=== PATIENT | male | born 1985 | race Caucasian/White ===

== ENCOUNTER 2016-12-10 10:33 | Day surgery (SDC) | payer BC ==
[2016-12-10] VITALS (22 sets, daily range): BP systolic 108–146; BP diastolic 70–97; PULSE 54–78; RESP 11–22; Ht 180.3 cm; Wt 96.2 kg
[~2016-12-10] VITALS: Ht 180.3 cm; Wt 96.2 kg
[~2016-12-10 10:33] MED LIST: CEFAZOLIN 2 GM/50 ML (PMX) 50 ML IVPB ONE; SOD CHLORIDE 0.9% 1,000 ML IV SCH
[2016-12-10] MEDS ORDERED: POLYMYXIN/BACITRACIN 1L IRRIG IRR ONE (11:30)
[2016-12-10] MEDS ORDERED: BUPIVACAINE 0.25% (MPF) 30 ML INJ INJ ONE (11:30)
[2016-12-10] MEDS ORDERED: ROCURONIUM 50 MG INJ ONE (11:41)
[2016-12-10] MEDS ORDERED: CEFAZOLIN 1 GM INJ ONE (11:41)
[2016-12-10] MEDS ORDERED: PROPOFOL 20 ML ONE (11:41)
[2016-12-10] MEDS ORDERED: FENTAnyl 50 MCG/ML VIAL ONE (11:42)
[2016-12-10] MEDS ORDERED: ROPIVACAINE 0.5 % 30 ML VIAL ONE (11:42)
[2016-12-10] MEDS ORDERED: MIDAZOLAM 1 MG/ML 2 ML INJ ONE (11:42)
[2016-12-10] MEDS ORDERED: POLYMYXIN/BACITRACIN 1L IRRIG ONE ×2 (11:43→12:47)
[2016-12-10] MEDS ORDERED: BUPIVACAINE 0.25% (MPF) 30 ML INJ ONE ×3 (11:43→12:47)
[2016-12-10] MEDS ORDERED: KETOROLAC 30 MG INJ ONE (12:21)
[2016-12-10] MEDS ORDERED: DEXAMETHASONE 4 MG/ML 1 ML INJ ONE (12:21)
[2016-12-10] MEDS ORDERED: METOCLOPRAMIDE 10 MG INJ ONE (12:21)
[2016-12-10] MEDS ORDERED: ONDANSETRON 4 MG INJ ONE (12:21)
[2016-12-10] MEDS ORDERED: SUGAMMADEX SODIUM 200 MG/2 ML VIAL IV ONE (12:21)
[2016-12-10] MEDS ORDERED: morphine (1 MG/ML) 10ML SYRINGE IV PRN ×3 (12:30)
[2016-12-10] MEDS ORDERED: LABETALOL HCL 20MG INJ IV PRN (12:30)
[2016-12-10] MEDS ORDERED: FENTAnyl 50 MCG/ML VIAL IV PRN ×3 (12:30)
[2016-12-10] MEDS ORDERED: DIPHENHYDRAMINE 50 MG INJ IV PRN (12:30)
[2016-12-10] MEDS ORDERED: MEPERIDINE 25 MG INJ IV PRN (12:30)
[2016-12-10] MEDS ORDERED: ONDANSETRON 4 MG INJ IV PRN (12:30)
[2016-12-10] MEDS ORDERED: EPHEDrine SULFATE 50 MG/5 ML SYG IV PRN (12:30)
[2016-12-10] MEDS ORDERED: METOCLOPRAMIDE 10 MG INJ IV PRN (12:30)
--- NOTE | 2016-12-10 12:41 | OPR ---
Date/Time of Note Date/Time of Note DATE: 12/10/16 TIME: 12:39 Operative Report Procedure Date: Dec 10, 2016 Preoperative Diagnosis left incarcerated inguinal hernia Postoperative Diagnosis same Operation/Procedure Performed open left incarcerated inguinal hernia repair with medium ultrapro hernia system mesh Surgeon Ersnt Foster MD Professional Caster none Anesthesia Type: general Estimated Blood Loss: 0 - 10 ml's Transfusion none Specimen none Grafts/Implants none Complications none Pt Condition Post Procedure: stable Indications This is a 31-year-old male with an incarcerated left inguinal hernia. He requests surgical repair. Risks alternatives benefits and percent were discussed the patient. Patient expressed understanding consents to the operation. Procedure Description Patient is taken to the OR and prepped and draped in usual sterile fashion. Surgical timeout was performed. IV antibiotics given. Left inguinal oblique incision was made with a 10 blade. Dissection Carrs carried onto the extremity fascia. The extremity fascia was opened with a 15 blade. This incision was extended medially inferiorly lateral superiorly with Metzenbaum scissors. Cord structures encircled with a [place] drain. Large indirect hernia that is incarcerated is reduced manually. The distal portion of the ultrapure hernia system mesh is secured in the space with a running 0 Prolene from the pubic tubercle along the shelving of the inguinal ligament and superiorly to the intra -bleed with interrupted 3-0 Vicryl. [place] mesh was secured in a similar fashion with a running 0 Prolene from the pubic tubercle along the shelving edge of the inguinal ligament. Strep screen reapproximate around the cord structures to re-create the inguinal ring with interrupted 0 Prolene. [place] mesh is secured to intra-bleed with interrupted 0 Vicryl. Extremity fascia is closed a running 3-0 Vicryl. Pavan's fascia was closed with interrupted 3-0 Vicryl. Skin was closed using skin shakira. Dressings were applied Aaron FOSTER Dec 10, 2016 12:41
[2016-12-10] MEDS ORDERED: IBUPROFEN 600 MG TAB PO ONE (13:00)
== END 2016-12-10 16:20 | disposition home or self-care (01) ==
LOC: SDS 10:33
PROVIDERS: ATTEND Surgery
DX: K40.90 Unilateral inguinal hernia, without obstruction or gangrene, not specified as recurrent (principal)
CPT/HCPCS: 49507; C1781; J0690; J1100; J1885; J2175; J2250; J2405; J2765; J2795; J3010; Z7512; Z7610